=== PATIENT | female | born 1950 | race Caucasian/White ===

== ENCOUNTER 2019-08-16 14:13 | Emergency (ER) | payer MEDICARE, SELFPAY ==
--- NOTE | ~2019-08-16 | XR_ITS ---
EXAMINATION: XR chest 2V EXAM DATE: 08/16/2019 14:51 INDICATION: Cough and fever. Shortness of breath. TECHNIQUE: Frontal and lateral projections of the chest obtained and reviewed. Comparison is made to prior examination from 02/20/2017. FINDINGS: Patchy multifocal bibasilar airspace disease probably bronchopneumonia. There is a skin fo ld along the left lateral aspect of the thorax. There is no pneumothorax suspected. There are no pleu ral effusions. Cardiomediastinal silhouette is normal. There are no osseous abnormalities identified. IMPRESSION: Patchy multifocal basilar bronchopneumonia. Reviewed, dictated and finalized at location B. UNTANT CERTIFIED PUBLIC
[2019-08-16 14:29] VITALS: BP 157/67; PULSE 121; RESP 30; TEMP 38; O2SAT 93
--- NOTE | 2019-08-16 14:34 | ED.GENADULT ---
HPI - General Adult General Chief complaint: Upper Respiratory Infection Stated complaint: Cough/Fever/short of breath Time Seen by Provider: 08/16/19 14:35 Source: patient and RN notes reviewed Mode of arrival: ambulatory Limitations: no limitations History of Present Illness HPI narrative: This is a 69 years old female presented office for evaluation of cough for 4-day. Cough is getting worse with shortness of breath and hurt to take a deep breath. Cough is productive at times. Associated with high fever up to 101 yesterday. She also reported a little head congestion and stuffy nose. She was a former smoker, quit many years ago. She took 1 dose of Tylenol and albuterol about an hour prior to arrival. Denies sick contact. She did receive influenza vaccine for the season. Related Data Home Medications Medication Instructions Recorded Confirmed albuterol sulfate 2 puff INHALATION QID PRN 08/16/19 08/16/19 atorvastatin 10 mg PO DAILY 08/16/19 08/16/19 fluticasone propion-salmeterol 1 inh INHALATION DAILY 08/16/19 08/16/19 [Advair Diskus] montelukast [Singulair] 10 mg PO DAILY 08/16/19 08/16/19 nebivolol [Bystolic] 5 mg PO DAILY 08/16/19 08/16/19 Allergies Allergy/AdvReac Type Severity Reaction Status Date / Time codeine Allergy Intermediate RASH LIPS Verified 08/16/19 14:18 EVELYN Review of Systems Review of Systems: Narrative: CONSTITUTIONAL: Reports fever and feeling achy ENT: Reports sinus congestion. Denies sore throat, otalgia. CARDIOVASCULAR: Denies chest pain; but chest sore from coughing. RESPIRATORY: Reports dyspnea on exertion with cough GASTROINTESTINAL: Denies nausea, vomiting, diarrhea. SKIN: Denies rash MUSCULOSKELETAL: Denies acute back pain NEUROLOGIC: Denies lightheaded PMFSH Past Medical History Medical History Arthritis Asthma Borderline diabetes diet controlled at this time Bronchitis History of sinus tachycardia HLD (hyperlipidemia) HTN (hypertension) Surgical History Surgical History Hx of bilateral hip replacements Social History Social History (Reviewed 08/16/19 @ 14:47 by EDGAR Lewis Smoking status: Former smoker Comments At time of signature, I agree with nursing past medical, surgical, social and family history. There is no relevant family history pertinent to the presenting complaint. Exam Narrative: Exam Narrative: GENERAL: This is a well-nourished, well-developed patient, ill apparent but not in acute distress. EYES:Sclera clear/white. Vision is grossly intact. EARS: External ears normal, auditory canals clear and without drainage, TMs normal without perforation. Hearing grossly intact. NOSE: External nose normal with no obvious nasal discharge, nares without redness, no rhinorrhea. THROAT: Mucous membranes moist, posterior pharynx clear. NECK: Neck supple, non-tender without lymphadenopathy, masses or thyromegaly. CARDIOVASCULAR: Regular rate and rhythm without murmurs, gallops, or rubs. RESPIRATORY: Tachypnea, crackles noted in lower lobes with expiration, diminish in upper lobes. Breath sounds equal bilaterally.No use of accessory muscle/pulse lip breathing. GASTROINTESTINAL: Abdomen soft, non-tender, nondistended. Bowel sounds are active. No guarding. SKIN: warm, intact with no suspicious lesions or rash, good texture and turgor. NEURO: awake, alert, and oriented to person, place and time. There were no obvious focal neurologic abnormalities. Steady gait Anthony Coma Scale Eye Opening: Spontaneous 4 Anthony Coma Scale Motor: Obeys Commands 6 [place] Coma Scale Verbal: Oriented 5 Course Reevaluation(s) Reevaluation #1: When patient walked to Xray; she complains of shortness of breath; has to sit down; my tech recheck her sat which drops to 84% on room air. Patient appears struggle even with nebulizer treatment; I recommend ER for
[2019-08-16] MEDS: IPRATROPIUM BR 0.02% INH SOLN 0.5 MG/2.5 ML VIAL INHALATION (14:54)
[2019-08-16] MEDS: LEVALBUTEROL NEB 1.25 MG/3 ML INHALATION (14:54)
[2019-08-16 15:26] VITALS: PULSE 123; RESP 22; O2SAT 91
== END 2019-08-16 15:27 | disposition short-term general hospital (02) ==
PROVIDERS: Emergency Provider Nurse Practitioner; PCP Internal Medicine
DX: J18.9 Pneumonia, unspecified organism (principal)
CPT/HCPCS: 71046; 87804; 94640; 99215; G0463

== ENCOUNTER 2019-08-16 15:51 | Inpatient (IN) | payer MEDICARE, SELFPAY ==
[2019-08-16] VITALS (10 sets, daily range): BP systolic 110–143; BP diastolic 59–75; PULSE 81–138; RESP 18–26; TEMP 36.7–37.3; O2SAT 93–95; BMI 34.9
--- NOTE | 2019-08-16 16:13 | ED.URI ---
HPI - URI/Sore Throat General Chief Complaint: Upper Respiratory Infection Stated Complaint: SOB Time Seen by Provider: 08/16/19 16:05 Source: patient Mode of arrival: EMS Limitations: no limitations History of Present Illness HPI Narrative: A 69 y/o female presents to the ED with c/o moderate SOB. The SOB started today and is aggravated with exertion. She reports that she was seen at [facility] today and had a chest X-Ray done which showed multifocal pneumonia. Pt states that 1 week ago she started to have a productive cough. She notes that the cough produces yellow phlegm and produced some green phlegm this morning. On 08/12/19 the patient started to have chills. She adds that yesterday she had a fever of 101.8F, but she has no fever today. Pt reports rhinorrhea, but denies sore throat, N/V/D, and any urinary symptoms. MD elicited complaint: other (SOB) Pertinent past history: COPD and asthma Onset (ago): hour(s) (Today) Consistency: constant Severity: moderate Description of mucous: yellow and green Exacerbating factors: exertion Associated symptoms: fever (Resolved), chills, rhinorrhea and cough (Productive) Related Data Home Medications Medication Instructions Recorded Confirmed albuterol sulfate 2 puff INHALATION QID PRN 08/16/19 08/16/19 atorvastatin 10 mg PO DAILY 08/16/19 08/16/19 fluticasone propion-salmeterol 1 inh INHALATION DAILY 08/16/19 08/16/19 [Advair Diskus] montelukast [Singulair] 10 mg PO DAILY 08/16/19 08/16/19 nebivolol [Bystolic] 5 mg PO DAILY 08/16/19 08/16/19 Allergies Allergy/AdvReac Type Severity Reaction Status Date / Time codeine Allergy Intermediate RASH LIPS Verified 08/16/19 14:18 SWELL Review of Systems Review of Systems: All systems reviewed & are unremarkable except as noted in HPI and below Constitutional: Constitutional: Reports chills and Reports fever(s) (Resolved) ENT: Reports nasal discharge and Denies sore throat Respiratory: Respiratory: Reports cough (Productive) and Reports dyspnea Gastrointestinal: Gastrointestinal: Denies diarrhea, Denies nausea and Denies vomiting Genitourinary: Genitourinary: Denies hematuria, Denies post void dribbling, Denies dysuria, Denies urinary incontinence, Denies urinary hesitancy and Denies urinary urgency [facility] Past Medical History Medical History Arthritis Asthma Borderline diabetes diet controlled at this time Bronchitis COPD (chronic obstructive pulmonary disease) History of sinus tachycardia HLD (hyperlipidemia) HTN (hypertension) Post-menopausal Seasonal allergies Surgical History Surgical History Hx of bilateral hip replacements Social History Social History (Updated 08/16/19 @ 16:15 by Jackeline Park) Smoking status: Former smoker Smoking end date: 06/19/91 Exam Const: General: no acute distress and well developed Orientation/consciousness: oriented to person, oriented to place, oriented to time and patient oriented x3 HENMT: Head: normocephalic Ears: external ears normal General nose exam: Normal external nose present Eyes: General: appearance normal, both eyes and all related structures Conjunctivae: conjunctivae normal Neck: Neck: normal visual inspection and full ROM Chest: Chest palpation & inspection: normal inspection of the chest and no tenderness Resp: Effort & Inspection: normal respiratory effort Auscultation: wheezes throughout Cardio: Rate: tachycardic Rhythm: regular rhythm GI: GI Palp: No abdominal tenderness and Yes Soft to palpation Skin: General skin exam: normal color and turgor normal Neuro: General: oriented to person, oriented to place, oriented to time and patient oriented x3 Cognition (Neuro): normal cognition Extrem: General: normal to inspection, full ROM and no pedal edema Psych: Appearance: grossly normal Mental Status: mental status grossly normal A
[2019-08-16 16:42] LABS: Hematocrit 42.4 % (37.0-47.0); Hemoglobin 13.4 g/dL (12.0-15.0); Mean Corpuscular HGB Conc 31.6 g/dl (32-36); Mean Corpuscular Hemoglobin 28.5 pg (26-34); Mean Platelet Volume 10.1 fl (7.4-10.4); Platelet Count Result 239 k/mm3 (150-375); Red Blood Count 4.71 M/mm3 (4.2-5.4); White Blood Count 11.7 K/mm3 (4.5-10.0)
[2019-08-16] MEDS: ALBUTEROL SULFATE NEB 2.5 MG/0.5 ML INH INHALATION (16:48)
[2019-08-16] MEDS: IPRATROPIUM BR 0.02% INH SOLN 0.5 MG/2.5 ML VIAL INHALATION (16:49)
[2019-08-16 16:53] LABS: Lactic Acid Reflex 1.6 mmol/L (0.7-2.1)
[2019-08-16 16:54] LABS: Alanine Aminotransferase 23 U/L (4-35); Alkaline Phosphatase 117 U/L (38-126); Aspartate Amino Transferase 24 U/L (14-36); Bilirubin,Total 0.7 mg/dL (0.2-1.3); Blood Urea Nitrogen 13 mg/dL (7-17); Calcium 8.6 mg/dL (8.4-10.2); Carbon Dioxide 26 mmol/L (22-30); Chloride 97 mmol/L (98-107); Estimated CRCL calculation 76 ml/min; Estimated Glomerular Filt Rate > 60; Glucose 188 mg/dL (65-105); Potassium 3.7 mmol/L (3.4-5.0); Sodium 137 mmol/L (137-145)
[2019-08-16 16:58] LABS: Band Neutrophils Percent 31 % (0-6); Lymphocytes Absolute Manual 0.81 K/mm3 (1.1-4.5); Monocytes Percent Manual 12 % (3-9); Neutrophils Absolute Manual 9.47 K/mm3 (1.7-7.2); Neutrophils Percent Manual 50 % (46-73); Platelet Estimate Adequate (Adequate); Total Cells Counted 100
[2019-08-16 16:59] LABS: Anisocytosis 1+ (NORMAL)
--- NOTE | 2019-08-16 19:07 | ADMGEN ---
This patient, Brown Gomez, was admitted to IMU Room 211-01. Patient/family oriented to hospital policies and general routines including ID bracelet, bed and alarms, visiting hours, pain management, procedures, bathroom and other care routines, personal items, smoking policy, room service/diet, and visiting hours. Valuables list has been completed. Information on how to activate the Rapid Response Team has been discussed. Patient/Family are encouraged to report perceived risks to care and to ask questions if they do not understand what they are told or what they should do.
[2019-08-16] MEDS: SODIUM CHLORIDE 0.9% IV 1,000 ML 999 ML IV CONT (19:56)
[2019-08-16] MEDS: SODIUM CHLORIDE 0.9% IV 1,000 ML 125 ML IV CONT (21:33)
[2019-08-17] VITALS (14 sets, daily range): BP systolic 139–154; BP diastolic 59–69; PULSE 82–136; RESP 18–24; TEMP 36.2–37.5; O2SAT 91–98
--- NOTE | 2019-08-17 00:17 | PM.IMHP ---
H&P: HPI History of Present Illness Chief complaint: pneumonia, sepsis Narrative: This is a pleasant 69 year old female with diet controlled diabetes mellitus, asthma, and sinus tachycardia who presented to urgent care today with a complaint of worsening shortness of breath, productive cough, fever, and generalized weakness. Her symptoms started this past Monday with increased cough. She woke up 2 days ago with a more productive cough and fever of 101.8 F. Associated symptoms have been wheezing and chest discomfort with coughing. She denies any sore throat and hasn't had any LE swelling, redness, or pain. The patient was found to have multifocal pneumonia on CXR. While at the Urgent Care today the patient's pulse oximetry was dropping down to the mid 80s on room air. She was sent to the hospital for further evaluation. She denies any abdominal pain, nausea, vomiting, dysuria, hematuria, diarrhea or rectal bleeding. She does however report strong odor to her urine. The patient denies any other symptoms. Review of Systems Review of Systems: All systems reviewed & are unremarkable except as noted in HPI and below PMFSH Past Medical History Medical History Arthritis Asthma Borderline diabetes diet controlled at this time Bronchitis COPD (chronic obstructive pulmonary disease) History of sinus tachycardia HLD (hyperlipidemia) HTN (hypertension) Post-menopausal Seasonal allergies Surgical History Surgical History Hx of bilateral hip replacements Family History Family History Father FH: CABG (coronary artery bypass surgery) Mother Lung cancer Social History Social History Smoking status: Former smoker Smoking end date: 12/20/88 Alcohol intake: never Substance use: never Gender identity (if verbalized by the patient): Female Spiritual care concerns: No Meds Home Medications and Allergies Home Medications Medication Instructions Recorded Confirmed Type albuterol sulfate 2 puff INHALATION QID PRN 08/16/19 08/16/19 History atorvastatin 10 mg PO DAILY 08/16/19 08/16/19 History fluticasone propion-salmeterol 1 inh INHALATION DAILY 08/16/19 08/16/19 History [Advair Diskus] montelukast [Singulair] 10 mg PO DAILY 08/16/19 08/16/19 History nebivolol [Bystolic] 5 mg PO DAILY 08/16/19 08/16/19 History Allergies Allergy/AdvReac Type Severity Reaction Status Date / Time codeine Allergy Intermediate RASH LIPS Verified 08/16/19 14:18 SWELL Vital Signs Vital Signs - 24 hr 08/16/19 15:52 08/16/19 16:45 08/16/19 16:54 Temperature 37.3 C Pulse Rate 138 H 121 H 126 H Respiratory Rate 26 H 20 18 Blood Pressure 118/74 Pulse Oximetry 95 08/16/19 17:45 08/16/19 17:49 08/16/19 18:52 Temperature Pulse Rate 133 H 131 H 129 H Respiratory Rate 24 H 22 H 24 H Blood Pressure 110/75 110/75 131/59 L Pulse Oximetry 95 95 95 08/16/19 19:13 08/16/19 20:00 08/16/19 21:56 Temperature 37.1 C 36.7 C Pulse Rate 131 H 128 H 131 H Respiratory Rate 20 Blood Pressure 143/65 H Pulse Oximetry 93 08/16/19 22:00 08/17/19 00:00 Temperature 37.5 C Pulse Rate 81 136 H Respiratory Rate 20 Blood Pressure 154/62 H Pulse Oximetry 93 Exam Const: General: cooperative, alert, awake, ill appearing and other (febrile to touch++ ) Nutritional Appearance: well nourished Orientation/consciousness: patient oriented x3 HENMT: Head: normal to inspection General nose exam: Normal external nose present Face and sinus: normal facial exam Mouth: Yes Normal oral and palatal mucosa present and Yes oropharynx normal Eyes: Pupils: Equal, round and reactive pupils present EOM: EOMs intact bilaterally Neck: Neck: supple and no JVD Thyroid: thyroid normal Lymphatic: lymphad
[2019-08-17] MEDS: ACETAMINOPHEN 325 MG TABLET 650 MG PO ×2 (00:29→04:15)
[2019-08-17 02:23] LABS: Add Urine Microscopic? YES; Appearance Urine Clear (Clear); Bacteria Urine Trace /hpf; Bilirubin Urine Negative (Negative); Blood Urine 2+ (Negative); Color Urine Straw (Yellow); Glucose Urine UA Negative (Negative); Ketones Urine Negative (Negative); Leukocyte Esterase Ur Trace LEU/UL (Negative); Nitrate Urine Negative (Negative); Protein Urine Negative (Negative); Specific Grav Ur 1.006 (1.001-1.035); Squamous Epithelial Cell Urine Rare /hpf (Few); Urobilinogen Urine Negative mg/dL (<2.0)
[2019-08-17 04:25] LABS: Basophils Percent Auto 0.2 % (0.2-1.2); Hematocrit 39.9 % (37.0-47.0); Hemoglobin 12.5 g/dL (12.0-15.0); Immature Granulocyte Absolute 0.04 K/mm3 (0.00-0.031); Immature Granulocyte Percent A 0.4 % (0-0.5); Lymphocytes Absolute Auto 1.45 K/mm3 (0.9-3.2); Lymphocytes Percent Auto 12.9 % (18.3-44.2); Mean Corpuscular HGB Conc 31.3 g/dl (32-36); Mean Corpuscular Hemoglobin 28.1 pg (26-34); Mean Corpuscular Volume 89.7 fl (80-100); Mean Platelet Volume 9.4 fl (7.4-10.4); Monocytes Absolute Auto 1.3 K/mm3 (0.1-0.6); Monocytes Percent Auto 11.4 % (2.6-8.5); Neutrophils Absolute Auto 8.4 K/mm3 (1.3-6.7); Neutrophils Percent Auto 75.1 % (45.5-73.1); Platelet Count Result 228 k/mm3 (150-375); Red Blood Count 4.45 M/mm3 (4.2-5.4); Red Cell Distribution Width 14.9 % (11.5-14.5); White Blood Count 11.2 K/mm3 (4.5-10.0)
[2019-08-17 04:36] LABS: Blood Urea Nitrogen 9 mg/dL (7-17); Calcium 8.3 mg/dL (8.4-10.2); Carbon Dioxide 30 mmol/L (22-30); Chloride 107 mmol/L (98-107); Estimated CRCL calculation 86 ml/min; Estimated Glomerular Filt Rate > 60; Glucose 151 mg/dL (65-105); Potassium 3.8 mmol/L (3.4-5.0); Sodium 140 mmol/L (137-145)
[2019-08-17] MEDS: SODIUM CHLORIDE 0.9% IV 1,000 ML 125 ML IV CONT (05:36)
[2019-08-17 07:32] LABS: Add Urine Microscopic? YES; Appearance Urine Clear (Clear); Bilirubin Urine Negative (Negative); Blood Urine 2+ (Negative); Color Urine Straw (Yellow); Glucose Urine UA Negative (Negative); Ketones Urine Negative (Negative); Leukocyte Esterase Ur Trace LEU/UL (NEGATIVE); Nitrate Urine Negative (Negative); Protein Urine Negative (Negative); Squamous Epithelial Cell Urine Rare /hpf (Few); Urobilinogen Urine Negative mg/dL (<2.0)
[2019-08-17 08:34] LABS: Glucose Point of Care 151 (65-105)
[2019-08-17 08:36] LABS: Specific Grav Ur 1.004 (1.001-1.035)
--- NOTE | 2019-08-17 09:14 | PM.IMPN ---
Progress Note: A&P Assessment and Plan (1) Multifocal pneumonia: Code(s): J18.9 - Pneumonia, unspecified organism Status: Acute Assessment and Plan: Patient presents with a 5-day history of increasing shortness of breath, productive cough, fevers, and fatigue. Chest XR shows patchy multifocal basilar bronchopneumonia. Influenza negative in the ED. Continue antibiotics with IV azithromycin and Rocephin (day 2), nebulized bronchodilators, supplemental O2. Add Pulmozyme and Cornet. Blood cultures pending with no growth to date. Sputum culture pending. Pneumococcal and legionella antigens pending. (2) Sepsis: Qualifiers: Sepsis acute organ dysfunction status: unspecified Sepsis type: sepsis due to unspecified organism Qualified Code(s): A41.9 - Sepsis, unspecified organism Code(s): A41.9 - Sepsis, unspecified organism Status: Acute Assessment and Plan: Criteria met with tachycardia, tachypnea. Suspected source is respiratory. Continue antibiotics mentioned above. Lactic acid within normal limits. Monitor urine output and vital signs. Transfer out of IMU. Blood cultures pending. Urine culture pending. (3) Acute respiratory failure with hypoxia: Code(s): J96.01 - Acute respiratory failure with hypoxia Status: Acute Assessment and Plan: Secondary to above. Continue supplemental O2 and wean as tolerated to keep O2 saturations > 92%. (4) Asthma: Qualifiers: Asthma complication type: unspecified Asthma persistence: intermittent Asthma severity: mild Qualified Code(s): J45.20 - Mild intermittent asthma, uncomplicated Code(s): J45.909 - Unspecified asthma, uncomplicated Status: Acute Assessment and Plan: Continue Advair and singular. Respiratory regimen as outlined above. (5) Borderline diabetes: Code(s): R73.03 - Prediabetes Status: Chronic Assessment and Plan: Diet controlled. Continue to monitor with Accu-Cheks, cover with SSI needed. (6) HTN (hypertension): Qualifiers: Hypertension type: essential hypertension Qualified Code(s): I10 - Essential (primary) hypertension Code(s): I10 - Essential (primary) hypertension Status: Chronic Assessment and Plan: BP stable on home Bystolic. (7) HLD (hyperlipidemia): Qualifiers: Hyperlipidemia type: unspecified Qualified Code(s): E78.5 - Hyperlipidemia, unspecified Code(s): E78.5 - Hyperlipidemia, unspecified Status: Chronic Assessment and Plan: Continue home statin therapy. Subjective Date/time seen: 08/17/19 0845 Interval history: Ms. Gomez is a pleasant 69yo F admitted for acute respiratory failure secondary to pneumonia. She reports feeling mostly the same as yesterday, maybe slightly improved. She reports shortness of breath with exertion. She continues with a significant productive cough. Her cough was more productive yesterday with thick green mucus and she is not coughing up as much mucus this morning. She denies chest pain, palpitations, or calf tenderness. She had some nausea last night that is now resolved, no vomiting. She has tolerated some breakfast this morning without N/V. Review of Systems Review of Systems: Narrative: Twelve systems were reviewed with pertinent positives and negatives as per HPI. Exam Narrative: Exam Narrative: General: Female resting sitting up in bed in no acute distress. HEENT: Normocephalic, EOMI, oral mucosa moist. Cardiovascular: Rate is slightly tachycardic, rhythm is regular. Telemetry review shows sinus tachycardia up to 140s yesterday, now improved to HR 104 at time of exam. Respiratory: Decreased breath sounds bilaterally with expiratory
[2019-08-17] MEDS: ENOXAPARIN 40 MG/0.4 ML SYRINGE SUB-Q (10:32)
[2019-08-17] MEDS: NEBIVOLOL HCL 5 MG TABLET PO (10:33)
[2019-08-17] MEDS: ATORVASTATIN 10 MG TABLET PO (10:36)
[2019-08-17] MEDS: MONTELUKAST SODIUM 10 MG TABLET PO (10:36)
--- NOTE | 2019-08-17 10:52 | PC.NURSE ---
This patient, Brown Gomez, was received from [facility] on 08/17/19 at 1052. Personal belongings list checked and signed. Patient/family oriented to unit policies and routines
[2019-08-17] MEDS: DORNASE ALFA INH SOLN 1 MG/ML 2.5 ML AMP 2.5 MG INHALATION ×2 (13:10→21:23)
[2019-08-17 13:17] LABS: Glucose Point of Care 140 (65-105)
[2019-08-17 18:33] LABS: Glucose Point of Care 164 (65-105)
[2019-08-17] MEDS: IPRATROPIUM BR 0.02% INH SOLN 0.5 MG/2.5 ML VIAL INHALATION (21:23)
[2019-08-17 22:54] LABS: Glucose Point of Care 150 (65-105)
[2019-08-18] VITALS (14 sets, daily range): BP systolic 115–132; BP diastolic 52–92; PULSE 80–116; RESP 14–20; TEMP 36.2–37.2; O2SAT 93–100
[2019-08-18] MEDS: IPRATROPIUM BR 0.02% INH SOLN 0.5 MG/2.5 ML VIAL INHALATION ×4 (02:26→21:35)
[2019-08-18 06:34] LABS: Hematocrit 38.5 % (37.0-47.0); Hemoglobin 12.1 g/dL (12.0-15.0); Mean Corpuscular HGB Conc 31.4 g/dl (32-36); Mean Corpuscular Hemoglobin 28.3 pg (26-34); Mean Platelet Volume 9.9 fl (7.4-10.4); Platelet Count Result 234 k/mm3 (150-375); Red Blood Count 4.28 M/mm3 (4.2-5.4); Red Cell Distribution Width 15.2 % (11.5-14.5); White Blood Count 13.2 K/mm3 (4.5-10.0)
[2019-08-18] MEDS: DORNASE ALFA INH SOLN 1 MG/ML 2.5 ML AMP 2.5 MG INHALATION ×2 (07:57→21:35)
[2019-08-18 08:11] LABS: Glucose Point of Care 147 (65-105)
[2019-08-18] MEDS: ENOXAPARIN 40 MG/0.4 ML SYRINGE SUB-Q (08:21)
[2019-08-18] MEDS: ATORVASTATIN 10 MG TABLET PO (08:21)
[2019-08-18] MEDS: MONTELUKAST SODIUM 10 MG TABLET PO (08:21)
[2019-08-18] MEDS: NEBIVOLOL HCL 5 MG TABLET PO (08:21)
[2019-08-18] MEDS: LOPERAMIDE HCL 2 MG CAPSULE 4 MG PO (11:04)
--- NOTE | 2019-08-18 11:17 | PM.IMPN ---
Progress Note: A&P Assessment and Plan (1) Multifocal pneumonia: Code(s): J18.9 - Pneumonia, unspecified organism Status: Acute Assessment and Plan: Patient presents with a 5-day history of increasing shortness of breath, productive cough, fevers, and fatigue. Chest XR shows patchy multifocal basilar bronchopneumonia. Influenza negative in the ED. Continue antibiotics with IV azithromycin and Rocephin (day 3), nebulized bronchodilators, supplemental O2, Pulmozyme and Cornet. Blood cultures pending with no growth to date. Sputum culture pending. Pneumococcal and legionella antigens pending. (2) Sepsis: Qualifiers: Sepsis acute organ dysfunction status: unspecified Sepsis type: sepsis due to unspecified organism Qualified Code(s): A41.9 - Sepsis, unspecified organism Code(s): A41.9 - Sepsis, unspecified organism Status: Acute Assessment and Plan: Criteria met with tachycardia, tachypnea. Suspected source is respiratory. Continue antibiotics mentioned above. Lactic acid within normal limits. Monitor urine output and vital signs. Blood cultures pending with no growth to date. Urine culture pending. (3) Acute respiratory failure with hypoxia: Code(s): J96.01 - Acute respiratory failure with hypoxia Status: Acute Assessment and Plan: Secondary to above. Continue supplemental O2 and wean as tolerated to keep O2 saturations > 92%. (4) Asthma: Qualifiers: Asthma severity: mild Asthma persistence: intermittent Asthma complication type: unspecified Qualified Code(s): J45.20 - Mild intermittent asthma, uncomplicated Code(s): J45.909 - Unspecified asthma, uncomplicated Status: Chronic Assessment and Plan: Continue Advair and singular. Respiratory regimen as outlined above. (5) Borderline diabetes: Code(s): R73.03 - Prediabetes Status: Chronic Assessment and Plan: Diet controlled. Continue to monitor with Accu-Cheks, cover with SSI needed. Blood sugars appropriate today. (6) HTN (hypertension): Qualifiers: Hypertension type: essential hypertension Qualified Code(s): I10 - Essential (primary) hypertension Code(s): I10 - Essential (primary) hypertension Status: Chronic Assessment and Plan: Continue home Bystolic and monitor BP. (7) HLD (hyperlipidemia): Qualifiers: Hyperlipidemia type: unspecified Qualified Code(s): E78.5 - Hyperlipidemia, unspecified Code(s): E78.5 - Hyperlipidemia, unspecified Status: Chronic Assessment and Plan: Continue home statin therapy. Subjective Date/time seen: 08/18/19 1045 Interval history: Ms. Gomez is a pleasant 69yo F admitted for acute respiratory failure secondary to pneumonia. She reports feeling a little bit better than yesterday but still very fatigued and quite short of breath with minimal exertion. Continues with a productive cough. She denies any nausea or vomiting today and is tolerating oral intake. She had an episode of diarrhea this morning which may be related to antibiotics. She denies any chest pain, palpitations, or calf tenderness. Review of Systems Review of Systems: Narrative: Twelve systems were reviewed with pertinent positives and negatives as per HPI. Exam Narrative: Exam Narrative: General: Female resting sitting up in bed in no acute distress, visiting with family at bedside. HEENT: Normocephalic, EOMI, oral mucosa moist. Cardiovascular: Rate and rhythm regular. Respiratory: Decreased breath sounds bilaterally with expiratory wheeze. Respirations even and nonlabored. Tolerating 2L O2 nasal cannula. Abdomen: Soft, non-tender, non-distended, bowel sounds present. Ext
[2019-08-18 11:57] LABS: Glucose Point of Care 216 (65-105)
[2019-08-18 19:41] LABS: Glucose Point of Care 156 (65-105)
[2019-08-18 21:01] LABS: Glucose Point of Care 202 (65-105)
[2019-08-19] VITALS (10 sets, daily range): BP systolic 135–144; BP diastolic 57–58; PULSE 77–108; RESP 18–20; TEMP 36.4–36.6; O2SAT 86–96
[2019-08-19] MEDS: IPRATROPIUM BR 0.02% INH SOLN 0.5 MG/2.5 ML VIAL INHALATION ×3 (01:40→14:44)
[2019-08-19] MEDS: ACETAMINOPHEN 325 MG TABLET 650 MG PO (06:02)
[2019-08-19 06:40] LABS: Basophils Absolute Auto 0.1 K/mm3 (0.0-0.1); Basophils Percent Auto 0.8 % (0.2-1.2); Eosinophils Absolute Auto 0.2 K/mm3 (0-0.3); Eosinophils Percent Auto 2.2 % (0-4.4); Hematocrit 38.7 % (37.0-47.0); Hemoglobin 11.6 g/dL (12.0-15.0); Immature Granulocyte Absolute 0.05 K/mm3 (0.00-0.031); Immature Granulocyte Percent A 0.5 % (0-0.5); Lymphocytes Absolute Auto 1.37 K/mm3 (0.9-3.2); Lymphocytes Percent Auto 14.5 % (18.3-44.2); Mean Corpuscular Hemoglobin 27.6 pg (26-34); Mean Corpuscular Volume 91.9 fl (80-100); Mean Platelet Volume 9.9 fl (7.4-10.4); Monocytes Percent Auto 10.4 % (2.6-8.5); Neutrophils Absolute Auto 6.8 K/mm3 (1.3-6.7); Neutrophils Percent Auto 71.6 % (45.5-73.1); Platelet Count Result 260 k/mm3 (150-375); Red Blood Count 4.21 M/mm3 (4.2-5.4); Red Cell Distribution Width 15.2 % (11.5-14.5); White Blood Count 9.4 K/mm3 (4.5-10.0)
[2019-08-19 06:52] LABS: Blood Urea Nitrogen 8 mg/dL (7-17); Calcium 8.5 mg/dL (8.4-10.2); Carbon Dioxide 34 mmol/L (22-30); Chloride 98 mmol/L (98-107); Estimated CRCL calculation 101 ml/min; Estimated Glomerular Filt Rate > 60; Glucose 150 mg/dL (65-105); Magnesium 2.2 mg/dL (1.6-2.3); Potassium 3.7 mmol/L (3.4-5.0); Sodium 140 mmol/L (137-145)
[2019-08-19 07:43] LABS: Glucose Point of Care 162 (65-105)
[2019-08-19] MEDS: NEBIVOLOL HCL 5 MG TABLET PO (08:28)
[2019-08-19] MEDS: ATORVASTATIN 10 MG TABLET PO (08:28)
[2019-08-19] MEDS: MONTELUKAST SODIUM 10 MG TABLET PO (08:28)
[2019-08-19] MEDS: ENOXAPARIN 40 MG/0.4 ML SYRINGE SUB-Q (08:29)
[2019-08-19] MEDS: DORNASE ALFA INH SOLN 1 MG/ML 2.5 ML AMP 2.5 MG INHALATION (08:34)
[2019-08-19 12:00] LABS: Glucose Point of Care 223 (65-105)
[2019-08-19] MEDS: INSULIN ASPART (*BKC) 100 UNITS/ML SUB-Q (12:06)
--- NOTE | 2019-08-19 19:34 | PM.DS ---
DS: Diagnosis Admitting Diagnosis Admitting Diagnosis: Pneumonia, unspecified organism Discharge Diagnosis (1) Multifocal pneumonia: Code(s): J18.9 - Pneumonia, unspecified organism Status: Acute Assessment and Plan: Date of Service 08/19/19 Ms. Gomez is a 69yo F with history of asthma, diet-controlled type 2 diabetes mellitus, and hypertension who presented to the ED for evaluation of cough and increased shortness of breath. Chest XR showed patchy bibasilar bronchopneumonia. She was treated with 3 days of IV azithromycin and rocephin and discharged with oral augmentin to complete the course. She was also treated with nebulized bronchodilators, pulmozyme, supplemental oxygen, and cornet therapy. Her symptoms improved and she was tolerating room air at discharge. She noted her pulse ox sometimes ran high 80's at her doctors office, but declined home oxygen evaluation at this time. She was hemodynamically stable for discharge 08/19/19 with instructions to follow up with PCP in 1 week. Patient presents with a 5-day history of increasing shortness of breath, productive cough, fevers, and fatigue. Chest XR shows patchy multifocal basilar bronchopneumonia. Influenza negative in the ED. Continue antibiotics with IV azithromycin and Rocephin (day 3), nebulized bronchodilators, supplemental O2, Pulmozyme and Cornet. Discharged with oral antibiotics to complete the course. (2) Sepsis: Qualifiers: Sepsis acute organ dysfunction status: unspecified Sepsis type: sepsis due to unspecified organism Qualified Code(s): A41.9 - Sepsis, unspecified organism Code(s): A41.9 - Sepsis, unspecified organism Status: Acute Assessment and Plan: Criteria met with tachycardia, tachypnea. Suspected source is respiratory. Continue antibiotics mentioned above. Lactic acid within normal limits. Blood cultures and urine culture negative. (3) Acute respiratory failure with hypoxia: Code(s): J96.01 - Acute respiratory failure with hypoxia Status: Resolved Assessment and Plan: Secondary to above. Resolved, tolerating room air at discharge. (4) Asthma: Qualifiers: Asthma severity: mild Asthma persistence: intermittent Asthma complication type: unspecified Qualified Code(s): J45.20 - Mild intermittent asthma, uncomplicated Code(s): J45.909 - Unspecified asthma, uncomplicated Status: Chronic Assessment and Plan: Maintained on home Advair and singular. Respiratory regimen as outlined above. (5) Borderline diabetes: Code(s): R73.03 - Prediabetes Status: Chronic Assessment and Plan: Diet controlled. Continue to monitor with Accu-Cheks, cover with SSI needed. Blood sugars appropriate today. (6) HTN (hypertension): Qualifiers: Hypertension type: essential hypertension Qualified Code(s): I10 - Essential (primary) hypertension Code(s): I10 - Essential (primary) hypertension Status: Chronic Assessment and Plan: Maintained on home bystolic. (7) HLD (hyperlipidemia): Qualifiers: Hyperlipidemia type: unspecified Qualified Code(s): E78.5 - Hyperlipidemia, unspecified Code(s): E78.5 - Hyperlipidemia, unspecified Status: Chronic Assessment and Plan: Maintained on home statin therapy. DS: Summary Time Spent with Patient Time attestation: Total time spent providing and/or coordinating discharge services: 35 minutes Exam Narrative: Exam Narrative: General: Female resting sitting up in bed in no acute distress, visiting with family at bedside. HEENT: Normocephalic, EOMI, oral mucosa moist. Cardiovascular: Rate and rhythm regular. Respiratory: Decreased breath sounds b
--- NOTE | 2019-08-22 14:10 | PC.NURSE ---
Blood cx is negative.
== END 2019-08-19 17:30 | disposition home or self-care (01) | DRG 195 ==
LOC: ANHED 16:27 → ANHIMU 18:27 → ANH3MEDSUR 08-19 12:02 → ANHIMU 08-22 15:12
PROVIDERS: Family Medicine; Physician Assistant; Admitting Provider Hospitalist; Emergency Provider Emergency Medicine; PCP Internal Medicine; Visit Provider Family Medicine
DX: J18.9 Pneumonia, unspecified organism (principal); R00.0 Tachycardia, unspecified; M19.90 Unspecified osteoarthritis, unspecified site; Z28.21 Immunization not carried out because of patient refusal; J44.9 Chronic obstructive pulmonary disease, unspecified; E78.5 Hyperlipidemia, unspecified; I10 Essential (primary) hypertension; Z96.643 Presence of artificial hip joint, bilateral; J45.20 Mild intermittent asthma, uncomplicated; R73.03 Prediabetes
CPT/HCPCS: 36415; 71046; 80048; 80053; 81001; 83605; 83735; 85025; 85027; 87040; 87070; 87086; 87205; 87449; 87804; 87899; 94640; 94667; 94668; 96365; 96367; 99291; A9270; J0456; J0696; J1650; J1815; J7030; J7060

== ENCOUNTER 2020-08-18 13:59 | Outpatient (CLI) | payer MEDICARE, SELFPAY | END 2020-08-18 14:00 | disposition home or self-care (01) | LOC: ANHCOVIDVC 14:00 | PROVIDERS: PCP Family Medicine; Visit Provider Family Medicine | DX: Z23 Encounter for immunization (principal) | CPT/HCPCS: 0001A; 91300 ==

== ENCOUNTER 2020-09-08 14:00 | Outpatient (CLI) | payer MEDICARE, SELFPAY | END 2020-09-08 14:01 | disposition home or self-care (01) | LOC: ANHCOVIDVC 14:00 | PROVIDERS: PCP Family Medicine | DX: Z23 Encounter for immunization (principal) | CPT/HCPCS: 0002A; 91300 ==

== ENCOUNTER 2020-11-22 11:56 | Emergency (ER) | payer MEDICARE, SELFPAY ==
--- NOTE | 2020-11-22 12:01 | ED.SKABFB ---
HPI - Skin/Abscess/Foreign Bdy General Chief complaint: Skin/Abscess/Foreign Body Stated complaint: rash Time Seen by Provider: 11/22/20 12:01 Source: patient and RN notes reviewed History of Present Illness HPI narrative: Patient is a 70-year-old female who presents the urgent care with complaints of a rash to the lower abdomen, thighs and face. Patient states that she noticed her pannus rash on Monday which then traveled to the upper legs. Patient states that she typically uses the [id number]-myfccuw Lotrimin powder which improves the area within a day or 2 . Patient states that it is now just gotten much worse and she has been using a towel under the area to keep it free of moisture. Patient states that last night she woke up with severe itching to the arms, chest and face. Patient states she has now noticed some welts on her face. Denies of any new creams, detergents, medications. States that she has been taking sulfa for greater than 6 months and has never had allergic reaction. Patient denies of any shortness of breath or chest pain. States that she has been using Benadryl without much relief of the itch. No other acute complaints. No acute distress noted. Patient aware of the plan of care. Some parts of this dictation were generated by voice recognition software and may contain typographical and/or grammatical inaccuracies. Related Data Home Medications Medication Instructions Recorded Confirmed Bystolic 5 mg PO DAILY 08/16/19 11/22/20 albuterol sulfate 2 puff INHALATION QID PRN 08/16/19 11/22/20 atorvastatin 10 mg PO DAILY 08/16/19 11/22/20 fluticasone propion-salmeterol 1 inh INHALATION DAILY 08/16/19 11/22/20 [Advair Diskus] montelukast [Singulair] 10 mg PO DAILY 08/16/19 11/22/20 conjugated estrogens [Premarin] 11/22/20 furosemide 11/22/20 glipizide mg PO 11/22/20 sulfamethoxazole-trimethoprim tablet 11/22/20 Allergies Allergy/AdvReac Type Severity Reaction Status Date / Time codeine Allergy Intermediate RASH LIPS Verified 11/22/20 12:09 BOYDLL Review of Systems Review of Systems: Narrative: CONSTITUTIONAL: Denies fever, chills, or sweats. EYES: Denies visual changes, redness, or discharge. ENT: Denies rhinorrhea, congestion, sore throat, or otalgia. CARDIOVASCULAR: Denies chest pain, palpitations, or edema. RESPIRATORY: Denies cough or dyspnea. GASTROINTESTINAL: Denies abdominal pain, nausea, vomiting, or diarrhea. GENITOURINARY: Denies dysuria or hematuria. SKIN: Reports of a pannus rash as well as itchiness to bilateral upper thighs, lower arms and welts to the face MUSCULOSKELETAL: Denies back pain, joint pain, or myalgia. NEUROLOGIC: Denies headache, numbness, or weakness. All other systems reviewed are negative, except as documented in HPI. [facility] Past Medical History Medical History (Updated 11/22/20 @ 12:20 by ROSANNA Goodwin) Arthritis Asthma Borderline diabetes diet controlled at this time Bronchitis History of sinus tachycardia HLD (hyperlipidemia) HTN (hypertension) Post-menopausal Seasonal allergies Surgical History Surgical History Hx of bilateral hip replacements Family History Family History Father FH: CABG (coronary artery bypass surgery) Mother Lung cancer Social History Social History Smoking status: Former smoker Smoking end date: 12/20/88 Alcohol intake: never Substance use: never Gender identity (if verbalized by the patient): Female Spiritual care concerns: No Comments At the time of my signature, I reviewed and agree with the nursing past medical, surgical, social, and family history. There is no relevant family history pertinent to the patient complaint. Exam Narrative: Exam Narrative: GENERAL: This is a well-nourished, well-developed patient, in no apparent d
[2020-11-22 12:10] VITALS: BP 141/54; PULSE 84; RESP 16; TEMP 36.2; O2SAT 94
== END 2020-11-22 12:25 | disposition home or self-care (01) ==
PROVIDERS: Emergency Provider Nurse Practitioner Family
DX: L50.9 Urticaria, unspecified (principal); B37.9 Candidiasis, unspecified; L30.4 Erythema intertrigo; Z87.891 Personal history of nicotine dependence; M19.90 Unspecified osteoarthritis, unspecified site; J45.909 Unspecified asthma, uncomplicated; E78.5 Hyperlipidemia, unspecified; I10 Essential (primary) hypertension; Z96.643 Presence of artificial hip joint, bilateral
CPT/HCPCS: 99213; G0463

== ENCOUNTER 2023-06-27 13:20 | Emergency (ER) | payer MEDICARE, SELFPAY ==
--- NOTE | ~2023-06-27 | XR_ITS ---
EXAMINATION: XR chest 2V DATE: 06/27/2023 14:02 INDICATION: Cough and shortness of breath. TECHNIQUE: Frontal and lateral views of the chest were obtained. COMPARISON: Chest 2 views 08/16/2019 FINDINGS: There are airspace opacities in the lower lung zones. No pleural effusion or pneumothorax. The heart size is normal. IMPRESSION: 1. Airspace opacities in the lower lung zones, consistent with atelectasis versus pneumonia. Reviewed, dictated and finalized at location A. ARCHITECT IMPRESSION: 1. Airspace opacities in the lower lung zones, consistent with atelectasis vers us pneumonia.
--- NOTE | 2023-06-27 13:22 | ED.URI ---
HPI - URI/Sore Throat General Chief Complaint: Upper Respiratory Infection Stated Complaint: Sore Throat;Shortness of breath;Bodyache Time Seen by Provider: 06/27/23 13:40 Source: patient and RN notes reviewed Mode of arrival: ambulatory Limitations: no limitations History of Present Illness HPI Narrative: 73 year old female presents with concern for sore throat, shortness of breath, body aches, cough. Reports 2-3 day history of symptoms. Reports her has similar symptoms at home. She reports history of pneumonia. She denies fever. Reports she has taken Tylenol MD elicited complaint: cough and sore throat Related Data Home Medications Medication Instructions Recorded Confirmed albuterol sulfate 90 mcg/actuation 2 puff inhalation QID PRN 08/16/19 06/27/23 aerosol inhaler Shortness Of Breath Or Wheezing atorvastatin 10 mg tablet 10 mg PO DAILY 08/16/19 06/27/23 fluticasone 250 mcg-salmeterol 50 1 inh inhalation DAILY 08/16/19 06/27/23 mcg/dose blistr powdr for inhalation (Advair Diskus) montelukast 10 mg tablet 10 mg PO DAILY 08/16/19 06/27/23 (Singulair) nebivolol 5 mg tablet (Bystolic) 5 mg PO DAILY 08/16/19 06/27/23 Allergies Allergy/AdvReac Type Severity Reaction Status Date / Time codeine Allergy Intermediate RASH LIPS Verified 11/22/20 12:09 SWELL Review of Systems Review of Systems: CONSTITUTIONAL: Denies malaise, chills, sweats, or fever. EYES: Denies visual changes, redness, or discharge. ENT: Reports rhinorrhea, congestion, and sore throat. CARDIOVASCULAR: Denies chest pain, palpitations, or edema. RESPIRATORY: Reports cough, dyspnea. GASTROINTESTINAL: Denies abdominal pain, nausea, vomiting, diarrhea SKIN: Denies rash or itching. MUSCULOSKELETAL: Denies myalgia. NEUROLOGIC: Denies headache. All systems reviewed & are unremarkable except as noted in HPI and below PMFSH Past Medical History Medical History (Updated 06/27/23 @ 14:14 by Darlin Branham NP) Arthritis Asthma Borderline diabetes diet controlled at this time Bronchitis History of sinus tachycardia HLD (hyperlipidemia) HTN (hypertension) Post-menopausal Seasonal allergies Surgical History Surgical History Hx of bilateral hip replacements Family History Family History Father FH: CABG (coronary artery bypass surgery) Mother Lung cancer Social History Social History Smoking status: Former smoker Smoking end date: 12/20/88 Alcohol intake: never Substance use: never Gender identity (if verbalized by the patient): Female Spiritual care concerns: No Comments At time of signature, agree with nursing past medical, surgical, social and family history. There is no relevant family history pertinent to the presenting complaint Exam Narrative: GENERAL: Nontoxic-appearing, well-nourished, and in no acute distress. HEAD: Normocephalic EYES: PERRLA, conjunctivae clear ENT: Nares clear. Mucous membranes moist. TM pearly lyman with sharp light reflex bilaterally; no tragal tenderness. Oropharynx not erythematous without lesions. Tonsils not enlarged and without exudate, no drooling, no hoarseness, no trismus, uvula midline. NECK: Supple. No lymphadenopathy CHEST: Diminished lung sounds and mild rhonchi noted to the left upper lobe, otherwise clear to auscultation. No wheezing, rales, or stridor. No respiratory distress, speaks in full sentences. HEART: Regular rate and rhythm. No murmur heard. SKIN: Warm, dry, no rash. NEURO: Alert and oriented x3. PSYCH: Normal mood and affect Course Course Emergency Course: Patient is aware of diagnosis, understands and agrees to treatment plan. Anticipatory guidance given. Patient agrees to follow-up as directed and is aware of reasons to seek care at the emergency department. Portions
[2023-06-27 13:41] VITALS: BP 133/78; PULSE 88; RESP 16; TEMP 36.3; O2SAT 95
== END 2023-06-27 14:17 | disposition home or self-care (01) ==
PROVIDERS: Emergency Provider Nurse Practitioner
DX: J18.9 Pneumonia, unspecified organism (principal); E78.5 Hyperlipidemia, unspecified; I10 Essential (primary) hypertension; J45.909 Unspecified asthma, uncomplicated; Z79.899 Other long term (current) drug therapy; Z87.891 Personal history of nicotine dependence; Z20.822 Contact with and (suspected) exposure to COVID-19
CPT/HCPCS: 71046; 87081; 87426; 87804; 87880; 99213; G0463